=== PATIENT | female | born 1960 | race American Indian/Alaskan Native ===

== ENCOUNTER 2017-08-12 22:27 | Emergency (ER) | payer OTHER ==
[2017-08-12] MEDS ORDERED: DELTASONE ONE (23:54)
[2017-08-12] MEDS ORDERED: BENADRYL PO ONE (23:54)
[2017-08-12] MEDS ORDERED: PEPCID ONE (23:56)
[2017-08-13] MEDS ORDERED: PEPCID PO ONE
[2017-08-13] MEDS ORDERED: BENADRYL PO ONE
[2017-08-13] MEDS ORDERED: DELTASONE PO ONE
[2017-08-13] MEDS ORDERED: DECADRON IM ONE (04:23)
--- NOTE | 2017-08-13 04:29 | Emergency Department Report ---
ED Rash HPI - HPI Chief Complaint: Skin Rash Stated Complaint: RASH Duration: 1 Day Location: Chest, Back Suspected Cause: Unknown Rash Symptoms: Yes Itching, No Facial Swelling, No Tongue/Oral Swelling, No Breathing Difficulties, No Choking Sensation, No Wheezing/Dyspnea, No Peeling, No Blistering, No Fever, No Lightheaded, No Malaise, No Myalgias Severity: mild Other History: This is a 56-year-old female nontoxic, well nourished in appearance, no acute signs of distress presents to the ED with c/o of rash x1 day. Patient stated rash developed last night and describes it as itching. Denies any known product. Patient denies any facial swelling, difficulty breathing, angioedema, hoarseness, drooling, fever, chills, nausea, vomiting, chest pain, shortness of breath headache or stiff neck. She denies any allergies or past medical history. ED Review of Systems ROS: Stated complaint: RASH Other details as noted in HPI Constitutional: denies: chills, fever Eyes: denies: eye pain, eye discharge, vision change ENT: denies: ear pain, throat pain Respiratory: denies: cough, shortness of breath, wheezing Cardiovascular: denies: chest pain, palpitations Endocrine: no symptoms reported Gastrointestinal: denies: abdominal pain, nausea, diarrhea Genitourinary: denies: urgency, dysuria, discharge Musculoskeletal: denies: back pain, joint swelling, arthralgia Skin: rash. denies: lesions Neurological: denies: headache, weakness, paresthesias Psychiatric: denies: anxiety, depression Hematological/Lymphatic: denies: easy bleeding, easy bruising ED Past Medical Hx - Past Medical History Previous Medical History?: No - Surgical History Past Surgical History?: No - Social History Smoking Status: Current Every Day Smoker Substance Use Type: Alcohol - Medications Home Medications: Home Medications Medication Instructions Recorded Confirmed Last Taken Type EPINEPHrine [Epipen 2-Nacho] 0.3 mg IM PRN PRN #2 applicator 04/27/15 Unknown Rx Famotidine [Pepcid] 20 mg PO BID PRN #20 tablet 04/27/15 Unknown Rx Prednisone [predniSONE 5 mg (6-Day 5 mg PO .TAPER #1 tab.ds.pk 04/27/15 Unknown Rx Pack, 21 Tabs)] diphenhydrAMINE [Benadryl CAP] 25 mg PO Q6HR PRN #20 capsule 04/27/15 Unknown Rx diphenhydrAMINE [Benadryl CAP] 25 mg PO Q6HR PRN #20 capsule 08/13/17 Unknown Rx predniSONE [Deltasone] 40 mg PO QDAY #5 tab 08/13/17 Unknown Rx Rash Exam - Exam General: Vital signs noted. No distress. Alert and acting appropriately. GENERAL: The patient is a well-developed, well-nourished female in no apparent distress. Patient is alert and acting appropriately for age. Alert and oriented 3, no apparent distress, normal gait, atraumatic. HEENT: Head is normocephalic and atraumatic. PERRL, Extraocular muscles are intact. Pupils are equal, round, and reactive to light and accommodation. Nares appeared normal. Mouth is well hydrated and without lesions. Mucous membranes are moist. Posterior pharynx clear of any exudate or lesions. Mouth is well hydrated and without lesions. Tonsils not erythematous or swollen. Uvula midline. Tongue elevated. Mucous members are moist. Posterior pharynx clear, no exudate or lesions. Patent airways. NECK: Supple. No carotid bruits. No lymphadenopathy or thyromegaly.nontender. No meningitic signs are noted. LUNGS: Clear to auscultation. Non labor breathing. No intercostal retractions. Symmetrical with respiration, no wheezing, no rales, or crackles. HEART: Regular rate and rhythm without murmur, rubs or gallops. No reproducible. S1, S2 present, regular rate and rhythm without murmur, no rubs, no gallops. ABDOMEN: Soft, nontender, and nondistended. Positive bowel sounds. No hepatosplenomegaly was noted. No guarding or rebound tenderness, negative epigastric bruit. Negative psoas sign, negative benton sign, negative McBurneys sign EXTREMITIES: Without any cyanosis, clubbing, rash, lesions or edema. Peripheral pulses intact. Capillary refill less than 2 seconds. Full range of motion bilaterally. NEUROLOGIC: Cranial nerves II through XII are grossly intact. Alert and oriented x 3. Normal gait. Symmetrical strength and sensation. Reflexes 2+ throughout. Cerebellar testing normal. GCS score of 15. PSYCHIATRIC: Normal affect with no suicidal or homicidal ideations. HEENT: No Periorbital Edema, No Conjuctival Injection, No Chemosis, No Perioral Edema, No Tongue Edema, No Uvular Edema, No Compromised Airway, No Drooling Lungs: Yes Good Air Exchange (Normal Breath Sounds), No Wheezes, No Ronchi, No Stridor, No Cough, No Labored Respirations, No Retractions, No Use of Accessory Muscles, No Other Abnormal Lung Sounds Heart: Yes Regular, No Murmur Skin: Yes Urticarial Rash, Yes Maculopapular Rash, No Morbilliform rash, No Bulla(e), No Excoriations, No Weeping, No Tenderness, No Erythema, No Edema, No Encrustations, No Other Other: Positive: Abdomen Normal, Neurologic Normal, Musculoskeletal Normal ED Course Vital Signs 08/12/17 23:38 Temperature 98.2 F Pulse Rate 74 Respiratory 18 Rate Blood Pressure 163/102 O2 Sat by Pulse 97 Oximetry - Reevaluation(s) Reevaluation #1: 08/13/17 04:28 Patient is speaking in full sentences with no signs of distress noted. ED Medical Decision Making - Medical Decision Making This is a 56-year-old female that presents with allergic reaction. Patient is stable and was examined by me. Prior to my patient received Pepcid, prednisone , and Benadryl. Patient received an additional Decadron IM. Patient received prednisone at discharge and Benadryl. Patient was instructed not to operate any machinery at discharge due to drowsiness and while taking Benadryl. Patient was instructed Follow-up with a primary care doctor in 3-5 days or if symptoms worsen and continue return to emergency room as soon as possible. At time time of discharge, the patient does not seem toxic or ill in appearance. No acute signs of distress noted. Patient agrees to discharge treatment plan of care. No further questions noted by the patient. Critical care attestation.: If time is entered above; I have spent that time in minutes in the direct care of this critically ill patient, excluding procedure time. ED Disposition Clinical Impression: Allergic reaction Qualifiers: Encounter type: initial encounter Qualified Code(s): T78.40XA - Allergy, unspecified, initial encounter Hypertension Qualifiers: Hypertension type: unspecified Qualified Code(s): I10 - Essential (primary) hypertension Disposition: TO HOME OR SELFCARE Is pt being admited?: No Does the pt Need Aspirin: No Condition: Stable Instructions: Prednisone (By mouth), Diphenhydramine (By mouth), Urticaria (ED) , Allergies (ED), Hypertension (ED) Additional Instructions: Follow-up with a primary care doctor in 3-5 days or if symptoms worsen and continue return to emergency room as soon as possible. Do not operate while taking Benadryl and after discharge due to drowsiness Keep a daily diary of your blood pressure and present it to the primary care doctor/ Prescriptions: diphenhydrAMINE [Benadryl CAP] 25 mg PO Q6HR PRN #20 capsule PRN Reason: Itching predniSONE [Deltasone] 40 mg PO QDAY #5 tab Referrals: PRIMARY CARE, [Primary Care Provider] - 3-5 Days ERICKA BARTLETT MD [Staff Physician] - 3-5 Days [facility] [Outside] - 3-5 Days [facility] [Outside] - 3-5 Days Forms: Work/School Release Form(ED)
[2017-08-13 06:05] VITALS: BP 158/97
== END 2017-08-13 05:20 | disposition home or self-care (01) ==
LOC: ED 22:27
DX: T78.40XA Allergy, unspecified, initial encounter (principal); I10 Essential (primary) hypertension; F17.200 Nicotine dependence, unspecified, uncomplicated
CPT/HCPCS: 99282; J7512

== ENCOUNTER 2020-05-30 14:33 | Emergency (ER) | payer OTHER ==
--- NOTE | 2020-05-30 14:43 | Emergency Department Report ---
Blank Doc - Documentation Documentation: 59-year-old female that presents with headache, dizziness, SOB, and bilatearl arm tingling sensation. Exam: no facial drooping. no one sided weakness. EOMI. This initial assessment/diagnostic orders/clinical plan/treatment(s) is/are subject to change based on patient's health status, clinical progression and re- assessment by fellow clinical providers in the ED. Further treatment and workup at subsequent clinical providers discretion. Patient/guardians urged not to lynne pe from the ED as their condition may be serious if not clinically assessed and managed. Initial orders include: 1- Patient sent to MAIN ED for further evaluation and treatment 2- cardiac workup 3- CT head
--- NOTE | 2020-05-30 15:13 | XRay Report ---
XR chest routine 2V INDICATION / CLINICAL INFORMATION: Chest Pain COMPARISON: None available. FINDINGS: SUPPORT DEVICES: None. HEART / MEDIASTINUM: No significant abnormality. LUNGS / PLEURA: Lungs are clear. Costophrenic sulci are sharp. No pneumothorax. ADDITIONAL FINDINGS: No significant additional findings. IMPRESSION: 1. No acute findings. Signer Name: Vitor Pearce MD Signed: 05/30/2020 3:09 PM Workstation Name: [id number]
[2020-05-30 16:17] LABS: Basophils % (Auto) 0.7 % (0.0-1.8); Eosinophils % (Auto) 0.2 % (0.0-4.3); Hematocrit 39.8 % (30.3-42.9); Lymphocytes # (Auto) 1.5 K/mm3 (1.2-5.4); Lymphocytes % (Auto) 20.6 % (13.4-35.0); Mean Corpuscular HGB Conc 35 % (30-34); Mean Corpuscular Volume 91 fl (79-97); Monocytes # (Auto) 0.3 K/mm3 (0.0-0.8); Monocytes % (Auto) 4.5 % (0.0-7.3); Platelet Count 201 K/mm3 (140-440); Red Cell Distribution Width 13.1 % (13.2-15.2)
--- NOTE | 2020-05-30 16:24 | Cat Scan Report ---
CT head/brain wo con INDICATION / CLINICAL INFORMATION: 59 years Female; headache/dizziness. TECHNIQUE: Routine CT head without contrast. All CT scans at this location are performed using CT dos e reduction for ALARA by means of automated exposure control. COMPARISON: None. 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 The ventricular system is appropriate in size and configuration. There is no CT evidence of acute intracranial hemorrhage or significant mass effect. There is incidental calcificati on along the posterior falx. ORBITS: No significant abnormality of visualized orbits. SINUSES / MASTOIDS: There is focal opacification within the right anterior ethmoid air cells. CRANIOCERVICAL JUNCTION: No significant abnormality. ADDITIONAL FINDINGS: None. IMPRESSION: 1. Is mild microvascular angiopathy without CT ends of acute intracranial hemorrhage. Signer Name: Jone Iyer MD Signed: 05/30/2020 4:19 PM Workstation Name: [id number]
[2020-05-30 16:28] LABS: INR 0.9 (0.87-1.13); Partial Thromboplastin Time 25.3 Sec. (24.2-36.6)
[2020-05-30 16:42] LABS: Alanine Aminotransferase 18 units/L (7-56); Albumin 4.5 g/dL (3.9-5); Blood Urea Nitrogen 9 mg/dL (7-17); Calcium 9.6 mg/dL (8.4-10.2); Hemolysis Index 10
[2020-05-30 16:43] LABS: BUN/Creatinine Ratio 13
[2020-05-30] MEDS ORDERED: amLODIPine 5 MG TAB PO ONE (22:05)
--- NOTE | 2020-05-30 22:09 | Emergency Department Report ---
ED Chest Pain HPI - General Chief Complaint: Dizziness Stated Complaint: SOB, DIZZINESS PUI?: No Time Seen by Provider: 05/30/20 21:52 Source: patient Mode of arrival: Ambulatory Limitations: No Limitations - History of Present Illness Initial Comments: pt a 59-year-old female that presents emergency room with complaints of head ache, dizziness, bilateral arm numbness, chest pain and shortness of breath. Patient states all of her symptoms been going on for 3 days. Patient states her chest pain is a 4 out of 10. Patient dates her chest pain is worse with movement and palpation. Patient dates her chest pain is better with rest. Patient states her shortness of breath is better with rest and worse with exertion. Patient states her dizziness is better with rest. Patient states her headache is a 3 out of 10. Pain states is better with rest. Patient denies fever. Patient denies chills. Patient denies blurry vision. Patient denies syncope. Patient denies fever and chills. Patient states she has a history of high blood pressure but does not take any medication. Patient this is been many years since she seen a doctor. Patient denies recent travel. Patient denies recent international travel. Patient denies exposure to the novel coronavirus. Patient denies sick contacts. Patient denies fever and chills. Patient denies cough. Patient denies diarrhea. Patient denies coming in contact with anybody with symptoms of the novel coronavirus. Complaint: chest pain -: Sudden Severity: mild Quality: aching Consistency: constant re: dyspnea. denies: nausea, vomting, diaphoresis, sense of impending doom Other Symptoms: denies: cough, fever, syncope, rash, acid taste in mouth, leg swelling, palpitations, burping Treatments Prior to Arrival: none Aspirin use within the Past 7 Days: (0) No - Related Data On Oral Contraceptives: No Previous Rx's Medication Instructions Recorded Last Taken Type Amlodipine Besylate [Norvasc] 5 mg PO DAILY 30 Days #30 tablet 05/30/20 Unknown Rx Allergies Allergy/AdvReac Type Severity Reaction Status Date / Time No Known Allergies Allergy Unverified 04/27/15 15:11 Heart Score - HEART Score History: Slightly suspicious EKG: Normal Age: 45-65 Risk factors: No known risk factors Troponin: < normal limit HEART Score: 1 ED Review of Systems ROS: Stated complaint: SOB, DIZZINESS Other details as noted in HPI Constitutional: denies: chills, fever Eyes: denies: eye pain, eye discharge, vision change ENT: denies: ear pain, throat pain Respiratory: shortness of breath. denies: cough, wheezing Cardiovascular: chest pain. denies: palpitations Endocrine: no symptoms reported Gastrointestinal: denies: abdominal pain, nausea, diarrhea Genitourinary: denies: urgency, dysuria, discharge Musculoskeletal: denies: back pain, joint swelling, arthralgia Skin: denies: rash, lesions Neurological: as per HPI, headache. denies: weakness, paresthesias Psychiatric: denies: anxiety, depression Hematological/Lymphatic: denies: easy bleeding, easy bruising ED Past Medical Hx - Past Medical History Previous Medical History?: Yes Hx Hypertension: Yes (no meds) - Surgical History Past Surgical History?: No - Family History Family history: no significant - Social History Smoking Status: Never Smoker Substance Use Type: None - Medications Home Medications: Home Medications Medication Instructions Recorded Confirmed Last Taken Type Amlodipine Besylate [Norvasc] 5 mg PO DAILY 30 Days #30 tablet 05/30/20 Unknown Rx ED Physical Exam - General Limitations: No Limitations General appearance: alert, in no apparent distress - Head Head exam: Present: atraumatic, normocephalic - Eye Eye exam: Present: normal appearance, PERRL Pupils: Present: normal accommodation - ENT ENT exam: Present: mucous membranes moist - Neck Neck exam: Present: normal inspection, full ROM. Absent: tenderness, meningismus, lymphadenopathy, thyromegaly - Respiratory Respiratory exam: Present: normal lung sounds bilaterally, chest wall tenderness. Absent: respiratory distress, wheezes, rales - Cardiovascular Cardiovascular Exam: Present: regular rate, normal rhythm. Absent: systolic murmur, diastolic murmur, rubs, gallop - GI/Abdominal GI/Abdominal exam: Present: soft, normal bowel sounds. Absent: distended, tenderness, guarding - Rectal Rectal exam: Present: deferred - Extremities Exam Extremities exam: Present: normal inspection, full ROM. Absent: tenderness - Back Exam Back exam: Present: normal inspection, full ROM - Neurological Exam Neurological exam: Present: alert, oriented X3, CN II-XII intact, normal gait. Absent: motor sensory deficit - Psychiatric Psychiatric exam: Present: normal affect, normal mood - Skin Skin exam: Present: warm, dry, intact, normal color. Absent: rash ED Course Vital Signs 05/30/20 05/30/20 05/30/20 14:41 22:01 22:09 Temperature 98.0 F Pulse Rate 96 H 92 H Respiratory 20 16 Rate Blood Pressure 193/107 186/107 Blood Pressure 186/107 [Left] O2 Sat by Pulse 99 99 Oximetry 05/30/20 23:15 Temperature Pulse Rate 74 Respiratory 16 Rate Blood Pressure Blood Pressure 172/95 [Left] O2 Sat by Pulse 99 Oximetry - Reevaluation(s) Reevaluation #1: Patient states all of her symptoms have resolved. Patient's blood pressures currently 160/90. Patient denies headache. Patient denies chest pain. Patient is ambulatory without difficulty. Patient tolerating p.o. intake without difficulty. I discussed all results and clinical findings with patient. I discussed plan of care with patient. Patient agrees with plan of care. Patient is stable for discharge. Patient will be discharged home. Patient given discharge instructions. Patient voiced understanding of discharge instructions. 05/30/20 23:16 KHAI score - Khai Score Age > 65: (0) No Aspirin use within the Past 7 Days: (0) No 3 or more CAD Risk Factors: (0) No 2 or more Angina events in past 24 hrs: (0) No Known CAD with more than 50% Stenosis: (0) No Elevated Cardiac Markers: (0) No ST Deviation Greater than 0.5mm: (0) No KHAI Score: 0 ED Medical Decision Making - Lab Data Result diagrams: 05/30/20 15:46 05/30/20 15:46 - EKG Data -: EKG Interpreted by Or EKG shows normal: sinus rhythm, axis, intervals, QRS complexes, ST-T waves Rate: normal - Medical Decision Making Patient is a 59-year-old female that presents emergency room with complaints of headache, chest pain, shortness of breath, bilateral arm numbness. Patient noted to have elevated blood pressure. Patient given blood pressure medication in the ER. Patient given 5 mg of Norvasc. Patient's blood pressure improved. Patient's left the hospital essentially asymptomatic. Patient symptoms resolved after her blood pressure decreased. Patient stable for discharge. Patient given discharge instructions. - Differential Diagnosis Headache, uncontrolled blood pressure, chest pain, shortness of breath, Critical care attestation.: If time is entered above; I have spent that time in minutes in the direct care of this critically ill patient, excluding procedure time. ED Disposition Clinical Impression: Dizziness, SOB (shortness of breath), Essential hypertension, Chest wall pain Chest pain Qualifiers: Chest pain type: unspecified Qualified Code(s): R07.9 - Chest pain, unspecified Headache Qualifiers: Headache type: unspecified Headache chronicity pattern: acute headache Intractability: not intractable Qualified Code(s): R51.9 - Headache, unspecified Disposition: DC-01 TO HOME OR SELFCARE Is pt being admited?: No Does the pt Need Aspirin: No Condition: Stable Instructions: Chest Pain (ED), Heart Healthy Diet (ED), Costochondritis (ED), How to Take a Blood Pressure (ED), DASH Eating Plan (ED), Low Sodium Diet (ED), Hypertension (ED) Additional Instructions: Patient to follow-up with primary care in 2 to 3 days. Patient to follow-up with solar installer technician and a neurologist in 2 to 3 days. Patient to rest. Patient to increase water. Patient to avoid strenuous exercise or heavy lifting until cleared by solar installer technician and neurologist. Patient to take Tylenol or ibuprofen as needed for pain. Patient to eat a low-salt, heart healthy diet. Patient to monitor blood pressure at home. Patient to keep a blood pressure log. Patient to take blood pressure log to follow-up appointments. Patient to take meds as directed. Patient to return to the ER if condition worsens, changes or new symptoms arise. Prescriptions: Amlodipine Besylate [Norvasc] 5 mg PO DAILY 30 Days #30 tablet Referrals: PRIMARY CARE, [Primary Care Provider] - 2-3 Days Time of Disposition: 23:21 - Assessment Assessment Interval: Baseline - Level of Consciousness 1a. Level of Consciousness: alert/keenly responsive - LOC Questions 1b. LOC Questions: answers both correctly - LOC Command 1c. LOC Commands: performs tasks correctly - Best Gaze 2. Best Gaze: normal - Visual 3. Visual: no visual loss - Facial Palsy 4. Facial Palsy: normal symmetrical movement - Motor Arm 5a. Motor Arm Left: no drift 5b. Motor Arm Right: no drift - Motor Leg 6a. Motor Leg Left: no drift 6b. Motor Leg Right: no drift - Limb Ataxia 7. Limb Ataxia: absent - Sensory 8. Sensory: normal - Best Language 9. Best Language: no aphasia - Dysarthria 10. Dysarthria: normal - Extinction and Inattention 11. Extinction/Inattention: no abnormality - Scoring Total Score: 0 Stroke Severity: No Stroke Symptoms
[2020-05-30 23:16] VITALS: BP 172/95
== END 2020-05-30 23:41 | disposition home or self-care (01) ==
LOC: ED 14:33
DX: R07.89 Other chest pain (principal); R51.9 Headache, unspecified; R42 Dizziness and giddiness; R06.02 Shortness of breath; I10 Essential (primary) hypertension; Z79.899 Other long term (current) drug therapy
CPT/HCPCS: 36415; 70450; 71046; 80053; 84484; 85025; 85610; 85730; 93005